=== PATIENT | male | born 1950 | race Caucasian/White ===

== ENCOUNTER → 2018-06-16 | Outpatient (CLI) | payer MEDICARE, OTHER ==
[~2018-06-16] MED LIST: ACYC-114 PO; ALPR0.5T6 PO; ASPI-515 PO; ATOR20TA9 PO; BP MED; CALC-666 PO; CLON0.1T PO; ESCI10TA PO; GABA300C10 PO; HYDR1TAB16 PO; LISI-167 PO; MELO7.5T31 PO; METO25TA35 PO; OXYC5CAP2 PO; PHOS250T3 PO; SILD20TA2 PO; [UNRECOGNIZED DRUG - OTHER] TP
[2018-06-16 09:17] LABS: BASOPHILS # (AUTO) 0.04 x10^3/uL (0-0.1); BASOPHILS % (AUTO) 1 % (0-1); EOSINOPHILS % (AUTO) 1 % (1-7); LYMPHOCYTES # (AUTO) 2.09 x10^3/uL (1-3.4); LYMPHOCYTES % (AUTO) 30 % (22-44); MD NO; MEAN CORPUSCULAR HEMOGLOBIN 34.4 pg (27.5-34.5); MEAN PLATELET VOLUME 9.1 fL (7.4-10.4); MONOCYTES % (AUTO) 7 % (2-9); NEUTROPHILS # (AUTO) 4.31 x10^3/uL (1.8-6.8); NEUTROPHILS % (AUTO) 61 % (42-75); PLATELET COUNT 224 x10^3/uL (130-400); RED BLOOD COUNT 4.42 x10^6/uL (4.38-5.82); RED CELL DISTRIBUTION WIDTH 13.1 % (9.4-14.8)
[2018-06-16 09:18] LABS: CULTURE INDICATED? NO; MICROSCOPIC NOT IND
[2018-06-16 13:10] LABS: CHLORIDE 109 mmol/L (98-107)
[2018-06-16 13:28] LABS: ALANINE AMINOTRANSFERASE 30 U/L (12-78); ALBUMIN 3.8 g/dL (3.4-5.0); ALKALINE PHOSPHATASE 74 U/L (45-117); ANION GAP 7 mmol/L (5-15); BILIRUBIN,TOTAL 0.7 mg/dL (0.2-1.0); CALCIUM 9.3 mg/dL (8.5-10.1); CREATININE 0.82 mg/dL (0.7-1.3); TOTAL PROTEIN 7.1 g/dL (6.4-8.2)
== END | disposition home or self-care (01) ==
LOC: STAR 07:35 → MERGE 07:35
PROVIDERS: ATTEND Orthopaedic Surgery
DX: Z01.818 Encounter for other preprocedural examination (principal); M17.12 Unilateral primary osteoarthritis, left knee; M25.562 Pain in left knee
CPT/HCPCS: 36415; 80053; 81003; 85025; 87081; 93005

== ENCOUNTER 2018-06-23 05:16 | Inpatient (IN) | payer MEDICARE, OTHER ==
[2018-06-16 08:23] VITALS: BP 126/76
[~2018-06-23] VITALS: Ht 185.4 cm; Wt 100.6 kg
[~2018-06-23 05:16] MED LIST changes: -ACYC-114 PO; -OXYC5CAP2 PO
[2018-06-23] MEDS ORDERED: OXYC5CAP2 PO (06:13)
[2018-06-23] MEDS ORDERED: ACYC-114 PO (06:13)
[2018-06-23] MEDS ORDERED: LIDOCAINE-MPF 1%, 2ML INFIL ONE (06:30)
[2018-06-23] MEDS ORDERED: TRANEXAMIC ACID 100 MG/ML, 10ML ONE (06:35)
[2018-06-23] MEDS: LACTATED RINGERS 1,000 ML IV SCH ×2 (06:35→11:02)
[2018-06-23] MEDS ORDERED: KETOROLAC 60 MG/2 ML ONE (06:35)
[2018-06-23] MEDS ORDERED: VANCOMYCIN 1,000 MG ONE (06:36)
[2018-06-23] MEDS ORDERED: SODIUM CHLORIDE 0.9% 100 ML ONE (06:36)
[2018-06-23] MEDS ORDERED: ROPIvacaine/PF 0.2%, 20 ML ONE ×2 (06:36→06:59)
[2018-06-23] MEDS ORDERED: MIDAZOLAM 1 MG/ML, 2ML ONE (06:44)
[2018-06-23] MEDS ORDERED: FENTANYL PF 100 MCG/2ML ONE ×2 (06:44→09:04)
[2018-06-23] MEDS ORDERED: PROPOFOL 50 ML ONE ×2 (06:45→07:59)
[2018-06-23] MEDS ORDERED: ROPIvacaine/PF 0.5%, 20 ML ONE (06:59)
[2018-06-23] MEDS ORDERED: GABAPENTIN 300 MG CAPSULE PO ONE (07:00)
[2018-06-23] MEDS ORDERED: ONDANSETRON ODT 8 MG PO ONE (07:00)
[2018-06-23] MEDS ORDERED: ACETAMINOPHEN 500 MG TABLET PO ONE (07:00)
[2018-06-23] MEDS ORDERED: DIAZEPAM 5 MG TABLET PO ONE (07:00)
[2018-06-23] MEDS ORDERED: TAMSULOSIN 0.4 MG CAP.ER.24H PO ONE (07:00)
[2018-06-23] MEDS ORDERED: OxyconTIN ER 10 MG TAB.ER PO ONE (07:00)
[2018-06-23] MEDS ORDERED: BUPIVACAINE/PF 0.5% ONE ×3 (07:51→07:53)
[2018-06-23] MEDS ORDERED: DEXAMETHASONE 4 MG/ML, 1ML ONE (07:51)
[2018-06-23] MEDS ORDERED: CEFAZOLIN 1,000 MG ONE (07:51)
[2018-06-23] MEDS ORDERED: PROPOFOL 10 MG/ML, 20ML ONE (07:51)
[2018-06-23] MEDS ORDERED: EPINEPHRINE 1 MG/ML, 1ML ONE (07:56)
[2018-06-23] MEDS ORDERED: HYDROmorphone 1 MG/ML, 1ML IV PRN ×2 (08:00→09:00)
[2018-06-23] MEDS ORDERED: MIDAZOLAM 1 MG/ML, 2ML IV PRN (08:00)
[2018-06-23] MEDS ORDERED: MEPERIDINE/PF 25MG/0.5ML IVPush PRN (08:00)
[2018-06-23] MEDS ORDERED: SCOPOLAMINE PATCH, 1.5MG PATCH.TD72 TD PRN (08:00)
[2018-06-23] MEDS ORDERED: LABETALOL 5MG/ML, 20ML IV PRN (08:00)
[2018-06-23] MEDS ORDERED: ALBUTEROL/IPRATROPIUM 2.5MG/0.5MG, 3 ML NPPB PRN (08:00)
[2018-06-23] MEDS ORDERED: ROPIvacaine/PF 0.2%, 100ML 550 ML (check volume) INJ ONE (08:00)
[2018-06-23] MEDS ORDERED: ONDANSETRON 2MG/ML, 2ML IV PRN ×2 (08:00→09:00)
[2018-06-23] MEDS ORDERED: hydrALAzine 20 MG/ML, 1ML IV PRN (08:00)
[2018-06-23] MEDS ORDERED: LORazepam 2 MG/ML, 1ML IVPush PRN (08:00)
[2018-06-23] MEDS ORDERED: OXYcodone 5 MG/5 ML ORAL.SOL UDC PO PRN (08:00)
[2018-06-23] MEDS ORDERED: PROMETHAZINE 25 MG SUPP PR PRN (08:00)
[2018-06-23] MEDS: ACYCLOVIR 400 MG TABLET PO SCH (09:00)
[2018-06-23] MEDS ORDERED: ONDANSETRON 4 MG TABLET PO PRN (09:00)
[2018-06-23] MEDS ORDERED: DIPHENHYDRAMINE 50 MG CAPSULE PO PRN (09:00)
[2018-06-23] MEDS ORDERED: PROMETHAZINE 25 MG/ML, 1ML IM PRN (09:00)
[2018-06-23] MEDS ORDERED: SENNA/DOCUSATE TABLET PO PRN (09:00)
[2018-06-23] MEDS ORDERED: ZOLPIDEM 5MG TABLET PO PRN (09:00)
[2018-06-23] MEDS: DOCUSATE 100 MG CAPSULE PO SCH ×2 (09:00→21:05)
[2018-06-23] MEDS: MULTIVITAMINS/MINERALS TABLET PO SCH (09:00)
[2018-06-23] MEDS ORDERED: DIAZEPAM 5 MG TABLET PO PRN (09:00)
[2018-06-23] MEDS ORDERED: MAGNESIUM HYDROXIDE 8%, 30ML UDC PO PRN (09:00)
[2018-06-23] MEDS ORDERED: ALUMINUM/MAG/SIMETHICONE 30 ML UDC PO PRN (09:00)
[2018-06-23] MEDS: METOPROLOL TARTRATE 25 MG TABLET PO SCH ×2 (09:00→21:06)
[2018-06-23] MEDS ORDERED: BISACODYL 10 MG SUPP PR PRN (09:00)
[2018-06-23] MEDS ORDERED: PROMETHAZINE 12.5 MG SUPP PR PRN (09:00)
[2018-06-23] MEDS: FENTANYL PF 100 MCG/2ML IV PRN ×2 (09:05→09:15)
[2018-06-23] MEDS ORDERED: TRANEXAMIC ACID 1,000 MG in SODIUM CHLORIDE 0.9% 100 ML IVPB ONE (09:15)
[2018-06-23] MEDS: CITALOPRAM 20 MG TABLET PO SCH (11:02)
[2018-06-23] MEDS: OXYcodone IR 5MG TABLET PO PRN ×4 (11:16→21:05)
[2018-06-23] MEDS: ACETAMINOPHEN 650 MG/20.3 ML UDC PO PRN ×2 (12:00→21:14)
[2018-06-23] MEDS: D5%-0.45% NACL 1,000 ML IV SCH ×2 (12:00→20:00)
[2018-06-23 13:25] VITALS: BP 130/69
[2018-06-23] MEDS: CEFAZOLIN PMX 2GM/50ML 50 ML IVPB SCH (16:06)
[2018-06-23] MEDS: GABAPENTIN 300 MG CAPSULE PO SCH ×2 (16:06→21:04)
[2018-06-23] MEDS: ASPIRIN 81 MG TABLET EC PO SCH (18:39)
[2018-06-23 18:40] VITALS: BP 116/66
[2018-06-23] MEDS ORDERED: ATORVASTATIN 20 MG TABLET PO SCH (21:00)
[2018-06-24 00:15] VITALS: BP 112/72
[2018-06-24] MEDS: CEFAZOLIN PMX 2GM/50ML 50 ML IVPB SCH (00:19)
[2018-06-24] MEDS: OXYcodone IR 5MG TABLET PO PRN ×3 (01:28→09:27)
[2018-06-24 04:00] VITALS: BP 130/75
[2018-06-24] MEDS: ACETAMINOPHEN 650 MG/20.3 ML UDC PO PRN ×2 (04:00→10:46)
[2018-06-24] MEDS: D5%-0.45% NACL 1,000 ML IV SCH (04:00)
[2018-06-24] MEDS: ASPIRIN 81 MG TABLET EC PO SCH (05:35)
[2018-06-24] MEDS ORDERED: DEXAMETHASONE 4 MG/ML, 1ML IVPush SCH (06:00)
[2018-06-24 06:49] VITALS: BP 148/81
[2018-06-24] MEDS: ACYCLOVIR 400 MG TABLET PO SCH (07:32)
[2018-06-24] MEDS: CITALOPRAM 20 MG TABLET PO SCH (07:32)
[2018-06-24] MEDS: METOPROLOL TARTRATE 25 MG TABLET PO SCH (07:33)
[2018-06-24] MEDS: GABAPENTIN 300 MG CAPSULE PO SCH (07:33)
[2018-06-24] MEDS: DOCUSATE 100 MG CAPSULE PO SCH (07:33)
[2018-06-24] MEDS: MULTIVITAMINS/MINERALS TABLET PO SCH (07:34)
[2018-06-24] MEDS ORDERED: KETOROLAC 30 MG/1 ML IV SCH (09:00)
[2018-06-24] MEDS ORDERED: OXYC5TAB3 PO (11:42)
== END 2018-06-24 12:05 | disposition home or self-care (01) | DRG 470 ==
LOC: OUT 05:16 → ORIP 08:51 → 4NOR 10:00 → DCLOUNGE 06-24 11:50
PROVIDERS: ADMIT Orthopaedic Surgery; ATTEND Orthopaedic Surgery
PROC: 0SRD0J9 Replacement of Left Knee Joint with Synthetic Substitute, Cemented, Open Approach (ICD-10-PCS; principal; 2018-06-23 07:30)
DX: M17.12 Unilateral primary osteoarthritis, left knee (principal); E78.5 Hyperlipidemia, unspecified; I25.10 Atherosclerotic heart disease of native coronary artery without angina pectoris; G89.29 Other chronic pain; M21.162 Varus deformity, not elsewhere classified, left knee; Z79.899 Other long term (current) drug therapy
CPT/HCPCS: 36415; 85014; 85018; C1713; G0378; J0171; J0690; J1100; J1885; J2250; J2405; J2704; J2795; J3010; J3370; J3490; Q0162; C1776; J7120

== ENCOUNTER 2018-06-28 09:34 | Emergency (ER) | payer MEDICARE, OTHER ==
[~2018-06-28] VITALS: Ht 185.4 cm; Wt 96.6 kg
[~2018-06-28 09:34] MED LIST changes: +ACYC-114 PO; +OXYC5CAP2 PO; +OXYC5TAB3 PO
[2018-06-28] MEDS ORDERED: PHENYLEPHRINE NASAL 1%, 15ML SPRAY ONE (09:42)
[2018-06-28] MEDS ORDERED: SILVER NITRATE STICK TP ONE ×2 (10:11→10:49)
[2018-06-28] MEDS ORDERED: COCAINE TOPICAL SOLN 4%, 4ML ONE (10:58)
[2018-06-28] MEDS ORDERED: BACITRACIN ZINC OINT 500U/GM, 0.9 GM ONE (11:35)
[2018-06-28 11:46] VITALS: BP 128/58
== END 2018-06-28 12:02 | disposition home or self-care (01) ==
LOC: ED 11:50
DX: R04.0 Epistaxis (principal); Z96.652 Presence of left artificial knee joint
CPT/HCPCS: 30901; 99284

== ENCOUNTER 2019-01-15 23:28 | Emergency (ER) | payer MEDICARE, OTHER ==
[~2019-01-15] VITALS: Ht 188 cm; Wt 98.4 kg
[~2019-01-15 23:28] MED LIST changes: +ATOR20TA37 PO; -ATOR20TA9 PO; -CLON0.1T PO; +CLON0.1T22 PO
[2019-01-15 23:30] VITALS: BP 99/65
[2019-01-15] MEDS ORDERED: LIDOCAINE-MPF 1%, 5ML ONE (23:58)
[2019-01-16] MEDS ORDERED: LIDOCAINE 1%, 10ML INFIL ONE
== END 2019-01-16 00:57 | disposition home or self-care (01) ==
LOC: ED 23:59
DX: S81.011A Laceration without foreign body, right knee, initial encounter (principal); S01.01XA Laceration without foreign body of scalp, initial encounter; S20.311A Abrasion of right front wall of thorax, initial encounter; S40.211A Abrasion of right shoulder, initial encounter; S40.811A Abrasion of right upper arm, initial encounter; W10.0XXA Fall (on)(from) escalator, initial encounter; Y93.89 Activity, other specified; Y92.520 Airport as the place of occurrence of the external cause; Y99.8 Other external cause status
CPT/HCPCS: 12032; 71046; 93005